=== PATIENT | female | born 1955 | race Caucasian/White ===

== ENCOUNTER 2019-04-20 14:20 | Outpatient (CLI) | payer OTHER, SELFPAY ==
--- NOTE | ~2019-04-20 | CT_ITS ---
EXAMINATION: CT abdomen pelvis wo/w con DATE: 04/20/2019 15:22 INDICATION: Microscopic hematuria TECHNIQUE: Computed tomography (CT) of the abdomen and pelvis was performed without intravenous contr ast. CT of the abdomen and pelvis was then performed with a total of 130 mL Omnipaque 350 intravenous contrast using a double-bolus technique for simultaneous opacification of the renal parenchyma and r enal collecting system. The dose-length product (DLP) was 481.16 mGy-cm. Automated exposure control a nd iterative reconstruction technique were employed. COMPARISON: None FINDINGS: Minimal dependent atelectasis is present in the lung bases. The heart size is normal. There is mild bronchiectasis of the lower lobes. There is an 11 mm cyst of the left hepatic lobe. Punctate calcifications in an otherwise normal spleen likely represent healed granulomatous disease. The panc reas, gallbladder, and adrenal glands are normal. A 6 mm hypoattenuating lesion of the right mid kidn ey is too small to characterize but likely represents a cyst. No suspicious renal or urothelial lesio n is identified. No stones are identified in the kidneys, ureters, or bladder. There is no hydronephr osis or hydroureter. No pathologically enlarged abdominal or pelvic lymph nodes are identified. There is no free intraperitoneal gas or evidence of bowel obstruction. The appendix is normal. There is mi ld lumbar spondylosis. There is a small fat-containing umbilical hernia. IMPRESSION: 1. No CT correlate for the patient's symptoms. Reviewed, dictated and finalized at location A. VISION ENGINEERING TEACHER
--- NOTE | ~2019-04-20 | XR_ITS ---
EXAMINATION: XR abdomen/kub 1V INDICATION: Microscopic hematuria TECHNIQUE: Supine views of the abdomen were obtained on 2 radiographs. COMPARISON: CT from today FINDINGS: Phleboliths are noted in the pelvis. No kidney stones are identified. The bowel gas pattern is normal. There is mild hip osteoarthritis. Punctate calcifications of the left upper quadrant are consistent with healed granulomatous disease of the spleen. IMPRESSION: 1. No urinary tract calculi identified. Reviewed, dictated and finalized at location A. TER MECHANIC
[2019-04-20 15:03] LABS: Blood Urea Nitrogen 13 mg/dL (8-26); Estimated Glomerular Filt Rate > 60
== END 2019-04-20 14:21 | disposition home or self-care (01) ==
LOC: ANHIMG 14:28
PROVIDERS: PCP Family Medicine; Visit Provider Nurse Practitioner Adult Health
DX: R31.29 Other microscopic hematuria (principal)
CPT/HCPCS: 74018; 74178; Q9967

== ENCOUNTER → 2020-05-02 09:40 | Outpatient (CLI) | payer OTHER, SELFPAY ==
--- NOTE | ~2020-05-02 | MM_ITS ---
EXAMINATION: MM screening [facility] BI w roverto HISTORY: Screening mammogram TECHNIQUE: Craniocaudal and mediolateral oblique 3-D tomosynthesis images were obtained and synthetic 2-D images were generated. CAD analysis was submitted and interpreted. COMPARISON: 04/05/2019, 10/15/2017, 05/04/2015 BREAST PARENCHYMAL COMPOSITION: There are scattered areas of fibroglandular density. FINDINGS: There is no evidence of suspicious mass, calcification, or architectural distortion to sugg est malignancy in either breast. There has been no suspicious interval change. IMPRESSION: 1. No mammographic evidence of malignancy. 2. Recommend routine screening mammography in one year. BI-RADS Category 1: Negative Reviewed, dictated and finalized at location A. NESS PERFORMANCE ADVISOR
--- NOTE | ~2020-05-02 | DEXA_ITS ---
Bone Density Report Name: Bisi Keith Age: 65 Sex: Female Ethnicity: White Date of : 1955 Indication: osteopenia;postmenopausal Referring Provider: BISI RAMIREZ Study: Bone densitometry was performed. Exam Date: May 02, 2020 Accession number: [id number] Bone Density: Region BMD T-score Z-score Classification AP Spine (L1-L4) 0.830 -2.0 -0.2 Osteopenia Femoral Neck (Left) 0.620 -2.1 -0.5 Osteopenia Total Hip (Left) 0.724 -1.8 -0.5 Osteopenia Femoral Neck (Right) 0.644 -1.8 -0.3 Osteopenia Total Hip (Right) 0.737 -1.7 -0.4 Osteopenia Total Hip Mean 0.731 -1.8 -0.5 Osteopenia World Health Organization criteria for BMD impression classify patients as: Normal (T-score at or above -1.0), Osteopenia (T-score between -1.0 and -2.5), or Osteoporosis (T-score at or below -2.5). 10-year Fracture Risk(1): Major Osteoporotic Fracture 10% Hip Fracture 1.7% Reported Risk Factors: [place] (), Neck BMD=0.620, BMI=23.1 (1) FRAX(R) Version 3.08. Fracture probability calculated for an untreated patient. Fracture probability may be lower if the patient has received treatment. Previous Exams: Region Exam Age BMD T-score BMD Change BMD Change Date g/cm2 vs Baseline vs Previous AP Spine(L1-L4) 05/02/2020 65 0.830 -2.0 -0.067* -0.009 10/15/2017 62 0.840 -1.9 -0.058* -0.058* 05/04/2015 60 0.897 -1.4 Total Hip(Left) 05/02/2020 65 0.724 -1.8 -0.005 0.017 10/15/2017 62 0.707 -1.9 -0.022 -0.022 05/04/2015 60 0.729 -1.7 Total Hip(Right) 05/02/2020 65 0.737 -1.7 -0.018 -0.008 10/15/2017 62 0.745 -1.6 -0.010 -0.010 05/04/2015 60 0.755 -1.5 *Denotes significance at 95% confidence level, LSC for AP Spine = 0.022 g/cm2, LSC for Total Hip = 0.027 g/cm2 Clinical Information Provided by Patient: Has used the following medications: Vitamin D Patient maximum height was 61.8 Menopause Age: 51 Drinks caffeinated beverages Onset of menses at age 11 Number of children 0 Impression: The patient has low bone mass, based on the Left Femoral Neck T-score. The patient has an estimated ten-year risk of hip fracture of 1.7% and an estimated ten-year risk of major fracture of 10%, based on the WHO FRAX algorithm. No significant bone loss was observed. Discussion: BONE DENSITY IS LOW AT ONE OR MORE SKELETAL SITES.
== END ==
PROVIDERS: PCP Family Medicine; Visit Provider Family Medicine
DX: Z12.31 Encounter for screening mammogram for malignant neoplasm of breast (principal); Z78.0 Asymptomatic menopausal state; M85.852 Other specified disorders of bone density and structure, left thigh; M85.851 Other specified disorders of bone density and structure, right thigh
CPT/HCPCS: 77063; 77067; 77080

== ENCOUNTER 2020-10-17 10:01 | Emergency (ER) | payer OTHER, SELFPAY ==
--- NOTE | ~2020-10-17 | XR_ITS ---
EXAMINATION: XR toe 4th LT min 2V INDICATION: Left fourth toe pain, initial encounter TECHNIQUE: Five views of the left fourth toe are obtained. COMPARISON: None available FINDINGS: There is an acute, traumatic, closed, oblique shaft fracture of the fourth proximal phalanx . The fracture does not appear to extend to the joint spaces. Soft tissue swelling surrounds the frac ture. No additional acute osseous findings are evident. There is moderate osteoarthritis of multiple interphalangeal joints. IMPRESSION: 1. Acute fracture of the fourth proximal phalanx. Reviewed, dictated and finalized at location B.
[2020-10-17 10:10] VITALS: BP 153/80; PULSE 79; RESP 16; TEMP 37.1; O2SAT 100
--- NOTE | 2020-10-17 10:42 | ED.LOWEXIN ---
HPI - Extremity Injury (Lower) General Chief Complaint: Extremity Injury, Lower Stated Complaint: INJURED TOE Time Seen by Provider: 10/17/20 10:13 Source: patient and RN notes reviewed Mode of arrival: ambulatory Limitations: no limitations History of Present Illness HPI Narrative: Patient presents today complaining of a left fourth toe injury last night. States she stubbed her toe on a thick kitchen mat. Denies numbness or tingling. Currently rates pain 6/10 with weightbearing. She has been applying ice and taking Tylenol with some relief. 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 complaint: foot injury Related Data Allergies Allergy/AdvReac Type Severity Reaction Status Date / Time No Known Allergies Allergy Verified 09/06/20 15:44 Review of Systems Review of Systems: CONSTITUTIONAL: Denies body aches, fever, chills, or sweats. EYES: Denies visual changes, redness, or discharge. ENT: Denies rhinorrhea, congestion, sore throat, or otalgia. CARDIOVASCULAR: Denies chest pain, palpitations, or edema. RESPIRATORY: Denies cough or dyspnea. GASTROINTESTINAL: Denies abdominal pain, nausea, vomiting, or diarrhea. GENITOURINARY: Denies dysuria or hematuria. SKIN: Denies rash, itching, or wounds. MUSCULOSKELETAL: Denies back pain, or myalgia. + Left fourth toe injury NEUROLOGIC: Denies headache, numbness, tingling, or weakness. PSYCH: Denies depression or anxiety. [facility] Past Medical History Medical History ARPAN-inhibitor cough Hypertension Microscopic hematuria Osteopenia Rotator cuff arthropathy of right shoulder Surgical History Surgical History History of rotator cuff surgery (~10/2019) Family History Family History Mother Family history of thyroid disease Hypertension Family history of cardiovascular disease Cerebrovascular accident Father Family history of cardiovascular disease Other Diabetes mellitus Social History Social History Smoking status: Never smoker Second hand tobacco smoke exposure: No Alcohol intake: current Substance use: never Substance use type: does not use Gender identity (if verbalized by the patient): Female Comments At time of signature, I have reviewed and agree with nursing past medical, surgical, social and family history unless otherwise noted. Please see nursing chart for further information. There is no relevant family history pertinent to the presenting complaint Exam Narrative: GENERAL: Well-appearing, well-nourished, and in no acute distress. HEAD: Normocephalic, atraumatic. EYES: EOMI. No redness or drainage. Conjunctivae normal. ENT: Mucous membranes pink and moist. NECK: Normal AROM. CHEST: No respiratory distress. EXTREMITIES: Normal range of motion. No edema. Left fourth toe: Moderate edema of the toe. No ecchymosis or erythema noted. No deformity noted. Distal sensation intact. Capillary refill normal. Pedal pulse normal. Range of motion of the toe normal with increased pain. Nail normal. SKIN: Warm, dry, no rash. Capillary refill normal. Normal skin turgor. NEURO: No focal deficits. Alert and oriented x3. Gait steady. PSYCH: Normal affect. No signs of depression or anxiety. Course Vital Signs Vital signs: Vital Signs Temperature 98.7 F 10/17/20 10:10 Pulse Rate 79 10/17/20 10:10 Respiratory Rate 16 10/17/20 10:10 Blood Pressure 153/80 H 10/17/20 10:10 Pulse Oximetry 100 10/17/20 10:10 Temperature 98.7 F 10/17/20 10:10 Pulse Rate 79 10/17/20 10:10 Respiratory Rate 16 10/17/20 10:10 Blood Pressure 153/80 H 10/17/20 10:10 Pulse Oximetry 100 10/17/20 10:10 Reviewed. Pt has been instructed to follow up with her PCP regarding
== END 2020-10-17 10:53 | disposition home or self-care (01) ==
PROVIDERS: Emergency Provider Nurse Practitioner; PCP Family Medicine
DX: S92.512A Displaced fracture of proximal phalanx of left lesser toe(s), initial encounter for closed fracture (principal); W22.8XXA Striking against or struck by other objects, initial encounter; I10 Essential (primary) hypertension; M81.0 Age-related osteoporosis without current pathological fracture
CPT/HCPCS: 73660; 99214; G0463

== ENCOUNTER → 2021-08-03 11:42 | Outpatient (CLI) | payer OTHER, SELFPAY ==
--- NOTE | ~2021-08-03 | MM_ITS ---
EXAMINATION: MM screening [facility] w roverto HISTORY: Screening mammogram TECHNIQUE: Craniocaudal and mediolateral oblique 3-D tomosynthesis images were obtained and synthetic 2-D images were generated. CAD analysis was submitted and interpreted. COMPARISON: May 02, 2020, April 05, 2019, October 15, 2017 bilateral screening mammogram examina tions BREAST PARENCHYMAL COMPOSITION: There are scattered areas of fibroglandular density. FINDINGS: There is no evidence of suspicious mass, calcification, or architectural distortion to sugg est malignancy in either breast. There has been no suspicious interval change. IMPRESSION: 1. No mammographic evidence of malignancy. 2. Recommend routine screening mammography in one year. BI-RADS Category 1: Negative Reviewed, dictated and finalized at location A.
== END ==
PROVIDERS: PCP Family Medicine; Visit Provider Family Medicine
DX: Z12.31 Encounter for screening mammogram for malignant neoplasm of breast (principal)
CPT/HCPCS: 77063; 77067

== ENCOUNTER 2022-02-20 07:33 | Outpatient (NON) | payer OTHER, SELFPAY | END 2022-02-20 07:34 | disposition home or self-care (01) | LOC: ANHLAB 02-21 07:34 | PROVIDERS: PCP Family Medicine; Visit Provider Internal Medicine Gastroenterology | DX: R10.13 Epigastric pain (principal) | CPT/HCPCS: 88305 ==

== ENCOUNTER 2022-02-20 10:23 | Day surgery (SDC) | payer OTHER, SELFPAY ==
[2022-02-14 10:14] VITALS: BMI 22.8
--- NOTE | 2022-02-20 11:24 | WPDANESEPPF ---
Anes - Initial Pre Proc Eval Procedure: Operation Date: 02/20/22 12:30 Proposed Procedures p Esophagogastroduodenoscopy - Felice Hartley MD Date/Time: 02/20/22 11:24 Surgeon: Felice Hartley MD Pre Op Diagnosis: Abdominal Pain Patient Data Age: 67 Gender: F Height: 1.55 m Weight: 54.5 kg Allergies Allergy/AdvReac Type Severity Reaction Status Date / Time No Known Allergies Allergy Verified 02/20/22 10:45 Home Medications Medication Instructions Recorded Confirmed Type losartan 25 mg tablet 25 mg PO DAILY #90 tabs 09/10/21 02/20/22 Rx trazodone 50 mg tablet 50 mg PO QHS PRN insomnia #30 tabs 12/10/21 02/20/22 Rx omeprazole 40 mg capsule,delayed 40 mg PO DAILY #40 caps 12/18/21 02/20/22 Rx release Miralax 1 packet PO DAILY 02/14/22 02/20/22 History [id number] C-E-herbal 1 packet PO DAILY 02/14/22 02/20/22 History calcium carb-vit D3-minerals 600 1 tablet PO DAILY 02/14/22 02/20/22 History mg calcium-400 unit tablet multivit with minerals-iron 18 1 tablet PO DAILY 02/14/22 02/20/22 History mg-folic ac 400 mcg-vit K 25 mcg tablet (Adults Multivitamin) Patient hx anesthesia problems: none Family hx anesthesia problems: none Results Review: All pre-operative results and documents have been reviewed as part of the pre-operative evaluation. [facility] Past Medical History Medical History ARPAN-inhibitor cough Chronic constipation Hypertension Osteopenia Surgical History Surgical History History of rotator cuff surgery (~10/2019) Family History Family History Mother Family history of thyroid disease Hypertension Family history of cardiovascular disease Cerebrovascular accident Father Family history of cardiovascular disease Other Diabetes mellitus Social History Social History Smoking status: Never smoker Second hand tobacco smoke exposure: No Alcohol intake: current Drinks per week: 1 Alcohol use details: OCCASIONAL GLASS OF WINE Substance use: never Substance use type: does not use Living arrangements: alone Gender identity (if verbalized by the patient): Female Spiritual care concerns: No Anes - Eval Final PreProcedure Day of Procedure 02/20/22 11:24 Patient weight: normal Heart: regular rate and rhythm Lungs: clear to auscultation Airway: Mallampati scale class II Neurological: alert and oriented Last oral intake: >/= 8 hours ASA classification: II Emergent: no Anesthetic plan: proceed Anesthesia type and monitoring: general GIVS and standard monitoring Results Review: All pre-operative results and documents have been reviewed as part of the pre-operative evaluation. Informed Consent: The patient's anesthetic plan and its attendant risks and benefits were discussed with the patient/family/POA. Questions were solicited and answers provided to the satisfaction of the patient/family/POA.
[2022-02-20 11:36] VITALS: BP 155/87; PULSE 84; RESP 18; TEMP 37.2; O2SAT 98
[2022-02-20] MEDS: LACTATED RINGERS 1,000 ML 150 ML IV CONT (11:37)
--- NOTE | 2022-02-20 12:18 | PM.HPGS ---
History of Present Illness History of Present Illness Consent: Risks, benefits, and alternatives have been discussed and questions answered. Patient agrees to proceed with procedure. Chief complaint: Abdominal Pain Narrative: Bisi Keith is a 67 year old female she had episode of epigastric pain while she was using asa and aleve prn, took omeprazole briefly. No more pain for a long time and doing well, not using any medication now. Review of Systems Constitutional: Constitutional: Denies headache(s) and Denies weakness Eyes: Eyes: Denies blurry vision ENT: Reports Normal hearing present, Denies headache(s) and Denies neck pain Cardiovascular: Cardiovascular: Denies chest pain and Denies dyspnea Respiratory: Respiratory: Denies dyspnea Gastrointestinal: Gastrointestinal: Reports no additional gastrointestinal complaints Genitourinary: Genitourinary: Denies dysuria Musculoskeletal: Musculoskeletal: Denies neck pain Integumentary/Breasts: Skin/Breast: Denies dry skin Neurologic: Reports Normal hearing present, Denies headache(s) and Denies weakness Psychiatric: Psychiatric: Denies anxiety Endocrine: Endocrine: Denies change in body appearance Hematologic/Lymphatic: Hematologic/Lymphatic: Denies easy bleeding Allergic/Immunologic: Allergic/Immunologic: Denies urticaria PMFSH Past Medical History Medical History (Updated 02/20/22 @ 12:19 by Felice Hartley MD) ARPAN-inhibitor cough Chronic constipation Epigastric pain Hypertension Osteopenia Surgical History Surgical History History of rotator cuff surgery (~10/2019) Family History Family History Mother Family history of thyroid disease Hypertension Family history of cardiovascular disease Cerebrovascular accident Father Family history of cardiovascular disease Other Diabetes mellitus Social History Social History Smoking status: Never smoker Second hand tobacco smoke exposure: No Alcohol intake: current Drinks per week: 1 Alcohol use details: OCCASIONAL GLASS OF WINE Substance use: never Substance use type: does not use Living arrangements: alone Gender identity (if verbalized by the patient): Female Spiritual care concerns: No Meds Home Medications and Allergies Home Medications Medication Instructions Recorded Confirmed Type losartan 25 mg tablet 25 mg PO DAILY #90 tabs 09/10/21 02/20/22 Rx trazodone 50 mg tablet 50 mg PO QHS PRN insomnia #30 tabs 12/10/21 02/20/22 Rx omeprazole 40 mg capsule,delayed 40 mg PO DAILY #40 caps 12/18/21 02/20/22 Rx release Miralax 1 packet PO DAILY 02/14/22 02/20/22 History [id number] C-E-herbal 1 packet PO DAILY 02/14/22 02/20/22 History calcium carb-vit D3-minerals 600 1 tablet PO DAILY 02/14/22 02/20/22 History mg calcium-400 unit tablet multivit with minerals-iron 18 1 tablet PO DAILY 02/14/22 02/20/22 History mg-folic ac 400 mcg-vit K 25 mcg tablet (Adults Multivitamin) Allergies Allergy/AdvReac Type Severity Reaction Status Date / Time No Known Allergies Allergy Verified 02/20/22 10:45 Vital Signs Vital Signs - 24 hr 02/20/22 11:36 Temperature 99.0 F Pulse Rate 84 Respiratory Rate 18 Blood Pressure 155/87 H Pulse Oximetry 98 Oxygen Delivery Room Air Exam Const: General: comfortable and no acute distress HENMT: Face/Nose/Sinus: Normal nares present Eyes: General: appearance normal, both eyes and all related structures Neck: Neck: no JVD Resp: Auscultation: clear to auscultation bilaterally Cardio: Rate: regular rate Rhythm: regular rhythm GI: Inspection: non-distended GI Palp: Yes Soft to palpation Skin: General skin exam: normal color Neuro: General: gait normal Speech: normal speech Extrem: General: normal to in
[2022-02-20 12:33] VITALS: BP 117/64; PULSE 70; RESP 18; O2SAT 99
[2022-02-20 12:43] VITALS: BP 115/66; PULSE 67; RESP 18; O2SAT 99
[2022-02-20 12:53] VITALS: BP 148/62; PULSE 65; RESP 18; O2SAT 99
--- NOTE | 2022-02-20 12:53 | WPDANESPN ---
Anes - Prog Note Post-Op Date/Time: 02/20/22 12:53 Cardiovascular status: normal Respiratory status: normal Airway patency: baseline Mental status: baseline Post-Op hydration status: normal Vital Signs: Last Vital Signs Temp 37.2 C 02/20/22 11:36 Pulse 65 02/20/22 12:53 Resp 18 02/20/22 12:53 BP 148/62 H 02/20/22 12:53 Pulse Ox 99 02/20/22 12:53 O2 Del Method Room Air 02/20/22 12:53 Pain Score (VAS): 0 I/O: Intake & Output 02/19/22 02/20/22 02/20/22 23:59 07:59 15:59 Intake Total 250 Balance 250 Patient Feedback: Patient satisfied with anesthetic care.
== END 2022-02-20 13:05 | disposition home or self-care (01) ==
PROVIDERS: PCP Family Medicine; Visit Provider Internal Medicine Gastroenterology
PROC: 0DJ08ZZ Inspection of Upper Intestinal Tract, Via Natural or Artificial Opening Endoscopic (ICD-10-PCS; CPT 43235; principal; 2022-02-20 12:30)
DX: R10.13 Epigastric pain (principal)
CPT/HCPCS: 43239

== ENCOUNTER → 2022-11-01 11:30 | Outpatient (CLI) | payer OTHER, SELFPAY ==
--- NOTE | ~2022-11-01 | MM_ITS ---
EXAMINATION: MM screening [facility] BI w roverto HISTORY: Screening mammogram TECHNIQUE: Craniocaudal and mediolateral oblique 3-D tomosynthesis images were obtained and synthetic 2-D images were generated. CAD analysis was submitted and interpreted. COMPARISON: 08/03/2021, 05/02/2020, 04/05/2019 BREAST PARENCHYMAL COMPOSITION: There are scattered areas of fibroglandular density. FINDINGS: No suspicious mass, calcification, or architectural distortion are identified in either watson ast to suggest malignancy. There has been no suspicious interval change. IMPRESSION: 1. No mammographic evidence of malignancy. 2. Recommend routine screening mammography in one year. BI-RADS Category 1: Negative Reviewed, dictated and finalized at location A.
== END ==
PROVIDERS: PCP Family Medicine; Visit Provider Physician Assistant
DX: Z12.31 Encounter for screening mammogram for malignant neoplasm of breast (principal)
CPT/HCPCS: 77063; 77067

== ENCOUNTER 2023-12-12 08:41 | Outpatient (CLI) | payer OTHER, SELFPAY | END 2023-12-12 08:42 | disposition home or self-care (01) | LOC: ANHAUDIO 08:42 | PROVIDERS: PCP Family Medicine; Visit Provider Otolaryngology | DX: H90.3 Sensorineural hearing loss, bilateral (principal); H69.92 Unspecified Eustachian tube disorder, left ear; Z86.69 Personal history of other diseases of the nervous system and sense organs | CPT/HCPCS: 92557; 92567 ==

== ENCOUNTER 2024-01-02 13:37 | Outpatient (CLI) | payer OTHER, SELFPAY ==
--- NOTE | ~2024-01-02 | MM_ITS ---
EXAMINATION: MM screening [facility] w roverto HISTORY: Screening TECHNIQUE: Craniocaudal and mediolateral oblique 3-D tomosynthesis images were obtained and synthetic 2-D images were generated. CAD analysis was submitted and interpreted. COMPARISON: Comparison to multiple prior studies sequentially, with oldest reviewed study dated 10/2017. BREAST PARENCHYMAL COMPOSITION: Not dense: There are scattered areas of fibroglandular density... FINDINGS: There is no evidence of suspicious mass, calcification, or architectural distortion to sugg est malignancy in either breast. There has been no suspicious interval change. IMPRESSION: 1. No mammographic evidence of malignancy. 2. Recommend routine screening mammography in one year. BI-RADS Category 1: Negative Reviewed, dictated and finalized at location B.
== END 2024-01-02 13:38 | disposition home or self-care (01) ==
LOC: MICIMG 13:38
PROVIDERS: PCP Family Medicine; Visit Provider Family Medicine
DX: Z12.31 Encounter for screening mammogram for malignant neoplasm of breast (principal)
CPT/HCPCS: 77063; 77067